=== PATIENT | female | born 1975 | race Caucasian/White ===

== ENCOUNTER 2020-05-24 10:39 | Emergency (ER) | payer MEDICAID, SELFPAY ==
[2020-05-24 10:52] VITALS: BP 137/81; PULSE 84; RESP 16; TEMP 36.7; O2SAT 100; BMI 23.5
--- NOTE | 2020-05-24 11:24 | XR_ITS ---
EXAMINATION: XR HAND, LEFT CLINICAL INFORMATION: IV drug abuser. Rule out foreign body retention. COMPARISON: None TECHNIQUE: PA, lateral, and oblique views of the left hand. FINDINGS: No acute fracture or dislocation is identified. No significant bony abnormality is present. No radiopaque foreign body is seen. No gas within the soft tissues is noted. There is a large amount of soft tissue swelling seen about the hand. A navicular cyst is present. IMPRESSION: Soft tissue swelling without underlying bony abnormality or radiopaque foreign body identified.
--- NOTE | 2020-05-24 11:39 | ED_ITS ---
HPI - Extremity Problem General Chief complaint: Extremity Injury, Upper Stated complaint: l hand swelling Time Seen by Provider: 05/24/20 11:24 Source: patient Mode of arrival: ambulatory Limitations: no limitations History of Present Illness HPI Narrative: 45-year-old female history of IV drug abuser, patient had a recent heroin injection in the left hand, now has been experiencing left hand swelling and tenderness and redness, patient decline any constitutional fever or chills. Patient also decline broken needle in the hands. Related Data Previous Rx's Medication Instructions Recorded amoxicillin-pot clavulanate 1 tab PO BID #20 tab 05/24/20 [Augmentin] sulfamethoxazole-trimethoprim 1 tab PO BID #20 tab 05/24/20 [Bactrim DS] Allergies Allergy/AdvReac Type Severity Reaction Status Date / Time No Known Allergies Allergy Verified 05/24/20 11:13 Review of Systems Review of Systems: Yes all other systems are reviewed and are negative Eyes: Eyes: Reports no additional eye complaints ENT: Reports system reviewed and no additional complaints, except as documente d Cardiovascular: Cardiovascular: Reports as per HPI and Reports no additional cardiovascular complaints Respiratory: Respiratory: Reports as per HPI and Reports no additional respiratory complaints Gastrointestinal: Gastrointestinal: Reports as per HPI and Reports no additional gastrointestinal complaints Musculoskeletal: Musculoskeletal: Reports no additional musculoskeletal complaints Neurologic: Reports system reviewed and no additional complaints, except as documented Psychiatric: Psychiatric: Reports no additional psychiatric complaints PMFSH Past Medical History Medical History Anxiety Depressed bipolar disorder Hepatitis C infection PTSD (post-traumatic stress disorder) Social History Social History Alcohol intake: never Smoking Status: Current every day smoker Use of substances other than those prescribed or required for medical reasons: Yes Substance Use Type: Heroin Substance Use Frequency: Daily Last Used Substance: Hours (ago) Advance Directives: No Advance Directives Information Provided: No Physical Exam Vital Signs: Vital Signs: Vital Signs Temp Pulse Resp BP Pulse Ox 05/24/20 10:52 98.0 F 84 16 137/81 100 Body Mass Index 23.5 Const: General: cooperative and healthy appearing Orientation/consciousness: oriented to person HENMT: Head: Yes normal to inspection and Yes No palpable skull fracture present Eyes: General: appearance normal, both eyes and all related structures Neck: Neck: Yes normal visual inspection Chest: Chest palpation & inspection: normal inspection of the chest Resp: Effort & Inspection: normal respiratory effort Cardio: Jugular venous distension: no JVD Rate: regular rate Rhythm: regular rhythm GI: Inspection: Yes normal to inspection Skin: General skin exam: other ( Diffuse IV track markes and both upper extremities.) Neuro: General: oriented to person Extrem: Left upper extremity: hand Details: normal capillary refill, warmth and swelling ( erythema on the dorsal aspect of the hand, no discrete fluctuation or abscess.) Course Course Course Narrative: 44-year-old female IV drug abuser who injected in the left hand 3 days ago started to have cellulitis, no discrete abscess and the left hand, patient did not meet criteria for sepsis, option of placing an IV checking labs were given to the patient but patient opted not to do that since she is not meeting criteria for sepsis and she would like to try feel antibiotic with close monitoring and returning to the emergency department in 2 days for checking on her hands. MDM - Extremity (Nontraumatic) MDM Narrative Medical decision making narrative: Assessment and plan. 44-year-old female IV drug abuser presented with left hand cellulitis with no discrete abscess, patient would like to try p.o. antibiotic will cover with double antibiotic (Bactrim/Augmentin ) and have the patient come back to the emergency department in 2 days to check on the cellulitis. Imaging Data Left hand x-ray: My impression: no foreign body, no free air. Discharge Plan Discharge Clinical Impression: Cellulitis of dorsum of hand Patient Disposition: Home, Self-Care Instructions: Cellulitis (ED) Additional Instructions: come back to the emergency department in 2 days for a wound check. Prescriptions: New amoxicillin-pot clavulanate [Augmentin] 875-125 mg tablet 1 tab PO BID Qty: 20 RF: 0 sulfamethoxazole-trimethoprim [Bactrim DS] 800-160 mg tablet 1 tab PO BID Qty: 20 RF: 0
[2020-05-24] MEDS: Amoxicillin/Potassium Clav 875 MG TABLET PO (11:41)
[2020-05-24 12:45] VITALS: BP 125/73; PULSE 74; RESP 16; TEMP 36.8
[2020-05-24] MEDS: oxyCODONE HCl Immed Release 5 MG TABLET PO (12:48)
== END 2020-05-24 12:53 | disposition home or self-care (01) ==
PROVIDERS: Emergency Provider Emergency Medicine
DX: L03.114 Cellulitis of left upper limb (principal); F11.10 Opioid abuse, uncomplicated; B19.20 Unspecified viral hepatitis C without hepatic coma; F17.200 Nicotine dependence, unspecified, uncomplicated
CPT/HCPCS: 73130; 99283; 99284

== ENCOUNTER 2020-08-11 04:55 | Emergency (ER) | payer MEDICAID, SELFPAY ==
[2020-08-11 05:27] VITALS: BP 128/65; PULSE 81; RESP 16; TEMP 36.4; O2SAT 97; BMI 19.3
--- NOTE | 2020-08-11 05:34 | ECG_ITS ---
Test Reason : MED CLEARANCE Blood Pressure : / mmHG Vent. Rate : 063 BPM Atrial Rate : 063 BPM P-R Int : 148 ms QRS Dur : 086 ms QT Int : 416 ms P-R-T Axes : 045 051 050 degrees QTc Int : 425 ms Normal sinus rhythm Normal ECG When compared with ECG of 26-APR-2020 20:32, Vent. rate has decreased BY 33 BPM Referred By: Generic ED Physician Electronically Signed By:Sandeep Macias
[2020-08-11 06:07] LABS: Basophils Percent Auto 0.3 % (0-2); Eosinophils Absolute Auto 0.1 X10*3/uL (0.0-0.4); Eosinophils Percent Auto 1.4 % (0-4); Hematocrit 31.4 % (37-47); Hemoglobin 10.2 g/dl (12.0-16.0); Imm Gran Abs Auto 0.01 X10*3/uL (0.00-0.03); Imm Gran Pct Auto 0.2 % (0.0-0.4); Lymphocytes Absolute Auto 2.5 X10*3/uL (1.2-4.9); Lymphocytes Percent Auto 39.7 % (20-40); Mean Corpuscular HGB Conc 32.5 g/dl (31.0-35.0); Mean Corpuscular Hemoglobin 27.3 pg (27.0-33.0); Mean Corpuscular Volume 84.2 fL (80-98); Mean Platelet Volume 9.3 fL (9.4-12.3); Monocytes Absolute Auto 0.4 X10*3/uL (0.1-1.2); Monocytes Percent Auto 6.9 % (2-11); Neutrophils Absolute Auto 3.2 X10*3/uL (2.0-8.3); Neutrophils Percent Auto 51.5 % (45-73); Platelet Count 313 X10*3/uL (160-400); Red Blood Count 3.73 X10*6/uL (4.20-5.50); Red Cell Distribution Width 14.6 % (11.0-16.0); White Blood Count 6.2 X10*3/uL (4.8-10.8)
[2020-08-11 06:10] LABS: MANUAL DIFF FLAG NO
[2020-08-11 06:29] LABS: COVID-19 Test Negative (Negative)
--- NOTE | 2020-08-11 06:30 | PC.NURSE ---
PT REPORTS THAT SHE HAS BEEN NON COMPLIANT WITH HER CLONIDINE,GABAPENTIN,WELLBUTRIN AND SEROQUEL X 3 MONTHS.
--- NOTE | 2020-08-11 06:31 | ED.PSYCH ---
HPI - Psych General Chief Complaint: Psychiatric Symptoms Stated Complaint: Crisis Time Seen by Provider: 08/11/20 06:29 Source: patient Mode of arrival: ambulatory Limitations: no limitations History of Present Illness MD complaint: suicidal ideation and feels depressed Onset (ago): day(s) (several ) Duration: constant History of same: Yes Relieving factors: none Exacerbating factors: drug use Context: recent drug abuse Associated psychiatric symptoms: depression and suicidal ideation Associated symptoms: denies other symptoms Treatments prior to arrival: none If self harm: admits thoughts of self harm Related Data Home Medications Medication Instructions Recorded Confirmed No Known Home Meds 08/11/20 08/11/20 Allergies Allergy/AdvReac Type Severity Reaction Status Date / Time No Known Allergies Allergy Verified 05/24/20 11:13 Review of Systems Review of Systems: Constitutional : No Fever, No Chills ENT/Mouth : No Ear Pain, No Nasal Congestion, No sore throat Eyes: No Eye Pain, No Swelling, No Redness Cardiovascular : No Chest Pain, No SOB Respiratory : No Cough, No Sputum, No Dyspnea Gastrointestinal : No Nausea, No Vomiting, No Diarrhea, No Hematochezia, No Melena Genitourinary : No Dysuria, No Urinary Frequency, No Hematuria Musculoskeletal : No Myalgias Skin : No Skin Lesions, No rash Neuro : No Weakness, No Numbness, No Paresthesias, No Dizziness, No Headache Psych : positive Anxiety, positive Depression, positive SI no HI Heme/Lymph: No Lymphadenopathy Endocrine : No Polyuria, No Polydipsia All other systems reviewed and are negative PMFSH Past Medical History Attestation statement: The following information was validated with the patient. Medical History Anxiety Depressed bipolar disorder Hepatitis C infection PTSD (post-traumatic stress disorder) Social History Social History Alcohol intake: never Smoking Status: Current every day smoker Smoked in Last 30 Days: No Use of substances other than those prescribed or required for medical reasons: Yes Substance Use Type: Heroin Advance Directives: No Physical Exam Vital Signs: Vital Signs: Last Vital Signs Temp 98.7 F 08/11/20 15:34 Pulse 55 08/11/20 15:34 Resp 16 08/11/20 15:34 BP 109/50 L 08/11/20 15:34 Pulse Ox 97 08/11/20 15:34 Body Mass Index 19.3 Appearance: Alert. Oriented X3. No acute distress. Eyes: Pupils equal, round and reactive to light. ENT: Pharynx normal. Neck: Normal inspection. Neck supple. CVS: Normal heart rate and rhythm. Pulses normal. Respiratory: No respiratory distress. Breath sounds normal. Abdomen: Soft and nontender. Skin: Skin warm and dry. Normal skin color. Normal skin turgor. Extremities: No lower extremity edema. No calf ttp Neuro: Oriented X 3. No motor deficit. No sensory deficit. CN 2-12 intact Psych: + anxiety, depression, + SI Course Course Course Narrative: BHN cleared but possible detox MDM - Psych MDM Narrative Medical decision making narrative: 45 yo female with substance abuse here for c/o SI - no medical complaints, will need labs, N consult, dispo per [facility] recommendation Lab Data Result diagrams: 08/11/20 06:01 08/11/20 06:01 Labs: Lab Results 08/11/20 08/11/20 08/11/20 Range/Units 06:01 06:01 06:01 WBC 6.2 (4.8-10.8) X10*3/uL RBC 3.73 L (4.20-5.50) X10*6/uL Hgb 10.2 L (12.0-16.0) g/dl Hct 31.4 L (37-47) % MCV 84.2 (80-98) fL MCH 27.3 (27.0-33.0) pg MCHC 32.5 (31.0-35.0) g/dl RDW 14.6 (11.0-16.0) % Plt Count 313 (160-400) X10*3/uL MPV 9.3 L (9.4-12.3) fL Immature Gran % (Auto) 0.2 (0.0-0.4) % Neut % (Auto) 51.5 (45-73) % Lymph % (Auto) 39.7 (20-40) % [place] % (Auto) 6.9 (2-11) % Eos % (Auto) 1.4 (0-4) % Baso % (Auto) 0.3 (0-2) % Lymph # (Auto) 2.5 (1.2-4.9) X10*3/uL [place] # (Auto) 0.4 (0.1-1.2) X10*3/uL Eos # (Auto) 0.1 (0.0-0.4) X10*3/uL Baso # (Auto) 0.0 (0.0-0.2) X10*3/uL Abs Immat Gran (auto) 0.01 (0.00-0.03) X10*3/uL Absolute Neuts (auto) 3.2 (2.0-8.3) X10*3/uL Absolute Nucleated RBC 0.000 (0.0-0.012) X10*3/uL Nucleated RBC % (auto) 0.0 (0.0-0.2) /100WBC Sodium 137 (135-145) mmol/L Potassium 3.7 (3.3-5.1) mmol/l Chloride 101 (96-108) mmol/L Carbon Dioxide 28 (22-29) mmol/L Anion Gap 12 (12-20) BUN 9 (9-16) mg/dL Creatinine 0.75 (0.5-1.4) mg/dL Estim Creat Clear Calc 81.6 Estimated GFR > 60 Random Glucose 86 (60-115) mg/dL Calcium 8.4 (8.4-10.2) mg/dL Total Bilirubin 0.2 (0.0-1.0) mg/dL AST 13 (5-31) U/L ALT 9 (0-31) U/L Alkaline Phosphatase 84 (39-117) U/L Total Protein 6.4 L (6.5-8.0) g/dL Albumin 3.4 L (3.5-5.0) g/dL Urine Test (NEGATIVE) Urine Opiates Screen (Not Detect) Ur Barbiturates Screen (Not Detect) Ur Phencyclidine Scrn (Not Detect) Ur Amphetamines Screen (Not Detect) U Benzodiazepines Scrn (Not Detect) Urine Cocaine Screen (Not Detect) U Marijuana (THC) Screen (Not Detect) COVID-19 ([facility]) Negative (Negative) COVID-19 Clin Com See Note 08/11/20 08/11/20 Range/Units 06:30 06:30 WBC (4.8-10.8) X10*3/uL RBC (4.20-5.50) X10*6/uL Hgb (12.0-16.0) g/dl Hct (37-47) % MCV (80-98) fL MCH (27.0-33.0) pg MCHC (31.0-35.0) g/dl RDW (11.0-16.0) % Plt Count (160-400) X10*3/uL MPV (9.4-12.3) fL Immature Gran % (Auto) (0.0-0.4) % Neut % (Auto) (45-73) % Lymph % (Auto) (20-40) % [place] % (Auto) (2-11) % Eos % (Auto) (0-4) % Baso % (Auto) (0-2) % Lymph # (Auto) (1.2-4.9) X10*3/uL [place] # (Auto) (0.1-1.2) X10*3/uL Eos # (Auto) (0.0-0.4) X10*3/uL Baso # (Auto) (0.0-0.2) X10*3/uL Abs Immat Gran (auto) (0.00-0.03) X10*3/uL Absolute Neuts (auto) (2.0-8.3) X10*3/uL Absolute Nucleated RBC (0.0-0.012) X10*3/uL Nucleated RBC % (auto) (0.0-0.2) /100WBC Sodium (135-145) mmol/L Potassium (3.3-5.1) mmol/l Chloride (96-108) mmol/L Carbon Dioxide (22-29) mmol/L Anion Gap (12-20) BUN (9-16) mg/dL Creatinine (0.5-1.4) mg/dL Estim Creat Clear Calc Estimated GFR Random Glucose (60-115) mg/dL Calcium (8.4-10.2) mg/dL Total Bilirubin (0.0-1.0) mg/dL AST (5-31) U/L ALT (0-31) U/L Alkaline Phosphatase (39-117) U/L Total Protein (6.5-8.0) g/dL Albumin (3.5-5.0) g/dL Urine Test NEGATIVE (NEGATIVE) Urine Opiates Screen POSITIVE H (Not Detect) Ur Barbiturates Screen Not Detected (Not Detect) Ur Phencyclidine Scrn Not Detected (Not Detect) Ur Amphetamines Screen Not Detected (Not Detect) U Benzodiazepines Scrn Not Detected (Not Detect) Urine Cocaine Screen POSITIVE H (Not Detect) U Marijuana (THC) Screen POSITIVE H (Not Detect) COVID-19 ([facility]) (Negative) COVID-19 Clin Com Discharge Plan Discharge Clinical Impression: Substance abuse Patient Disposition: Xfer Other Instructions: Polysubstance Abuse (ED) Additional Instructions: return to ED for any worsening symptoms or concerns Prescriptions: No Action No Known Home Meds RF: 0
[2020-08-11 06:42] LABS: Alanine Aminotransferase 9 U/L (0-31); Albumin Level 3.4 g/dL (3.5-5.0); Alkaline Phosphatase 84 U/L (39-117); Anion Gap 12 (12-20); Aspartate Amino Transferase 13 U/L (5-31); Bilirubin Total 0.2 mg/dL (0.0-1.0); Blood Urea Nitrogen 9 mg/dL (9-16); Calcium 8.4 mg/dL (8.4-10.2); Carbon Dioxide 28 mmol/L (22-29); Chloride 101 mmol/L (96-108); Creatinine Clr Calc Pharmacy 81.6; Estimated Glomerular Filt Rate > 60; Glucose Random 86 mg/dL (60-115); Potassium 3.7 mmol/l (3.3-5.1); Sodium 137 mmol/L (135-145); Total Protein 6.4 g/dL (6.5-8.0)
[2020-08-11 06:45] LABS: UPreg QC Valid YES; Urine Pregnancy NEGATIVE (NEGATIVE)
[2020-08-11 07:11] LABS: Amphetamine Screen Urine Not Detected (Not Detect); Barbiturates, Urine Not Detected (Not Detect); Benzodiazepines Screen Urine Not Detected (Not Detect); Cannabinoid Screen Urine POSITIVE (Not Detect); Cocaine Screen Urine POSITIVE (Not Detect); Opiate Screen Urine POSITIVE (Not Detect); Phencyclidine Screen Urine Not Detected (Not Detect)
[2020-08-11 07:19] VITALS: RESP 16
[2020-08-11 08:00] VITALS: RESP 16
--- NOTE | 2020-08-11 08:07 | PC.NURSE ---
call placed to [facility]. faxed to [phone]. confirmed.
[2020-08-11 15:34] VITALS: BP 109/50; PULSE 55; RESP 16; TEMP 37.1; O2SAT 97
--- NOTE | 2020-08-11 18:43 | PC.NURSE ---
Per N- pending detox placement, search continues. Pt has been calm and cooperative throughout care.
[2020-08-11 18:48] VITALS: BP 108/60; PULSE 78; RESP 16; O2SAT 98
--- NOTE | 2020-08-11 19:56 | MHC.RECOVSUP ---
? Reason for consult o Current location: [address] o Identified substance use concern: - Withdrawal - Seeking ATS (detox) - Support ? Intervention: o ATS bed search at 7:00PM/completed8:00PM No Bed Available till 8AM o Patient not interested in MAT o Community resources provided o Harm reduction discussion ? Plan: o Patient is being discharge Due to Covid Doctor deem it to risky to keep patient over night. ? Additional information:
[2020-08-11 21:00] VITALS: RESP 18
== END 2020-08-11 21:02 | disposition home or self-care (01) ==
PROVIDERS: Emergency Provider Emergency Medicine
DX: F14.10 Cocaine abuse, uncomplicated (principal); F11.10 Opioid abuse, uncomplicated; R45.851 Suicidal ideations; F32.9 Major depressive disorder, single episode, unspecified; F43.10 Post-traumatic stress disorder, unspecified; Z20.828 Contact with and (suspected) exposure to other viral communicable diseases; F17.200 Nicotine dependence, unspecified, uncomplicated
CPT/HCPCS: 36415; 80053; 80307; 81025; 85025; 87635; 93005; 99284; 99285